=== PATIENT | male | born 1980 | race African-American/Black ===

== ENCOUNTER → 2016-08-06 | Outpatient (CLI) | payer OTHER ==
[~2016-08-06] MED LIST: ATIVAN0.5 MG PO; BACTRIM DS TAB1 EACH PO; CHANTIX1 MG PO; COLACE100 MG PO; COLCHICINE0.6 M1 PO; HYDROCODONE-AP1 EAC6 PO; IBUPROFEN 400400 M1 PO; LEVAQUIN 250 M250 MG PO; LIDODERM 5%1 PATC1 TRANSDERM; LISINOPRIL10 MG PO; MIRALAX17 GM PO; MOUTH SORE15 ML MM; MYCAMINE50 MG IVPB; NEURONTIN600 MG PO; NORVASC10 MG PO; NORVASC5 MG PO; ONDANSETRON HCL4 M2 PO; OXYCODONE HCL E20 MG PO; PHENERGAN 25 MG25 M1 PO; PROBIOTIC1 EAC1 PO; PROLOPRIM100 MG PO; PROTONIX40 M1 PO; SENOKOT-S1 TA1 PO; TOPROL XL50 MG PO; TRAMADOL 50 MG50 MG PO; TRAZODONE HCL50 MG PO; TYLENOL325 MG PO; VALTREX 500 MG500 M1 PO; VFEND200 MG PO; ZESTRIL10 MG PO; ZOVIRAX800 MG PO
== END ==
LOC: RAD 10:44
DX: C91.02 Acute lymphoblastic leukemia, in relapse (principal)